=== PATIENT | female | born 1960 | race Hispanic/Latino ===

== ENCOUNTER 2017-07-27 16:42 | Emergency (ER) | payer SELFPAY ==
[2017-07-27] MEDS ORDERED: IPRATROPIUM/ALBUTEROL SULFATE 3 ML SOLUTION IH ONE (17:00)
[2017-07-27] MEDS ORDERED: METHYLPREDNISOLONE SOD SUCC 125MG/2ML VIAL ONE (17:16)
== END 2017-07-27 17:45 | disposition home or self-care (01) ==
LOC: EDH 16:42
DX: J45.909 Unspecified asthma, uncomplicated (principal)
CPT/HCPCS: 71045; 94640; 96372; 99283; J2930

== ENCOUNTER 2017-07-27 23:18 | Emergency (ER) | payer SELFPAY ==
[2017-07-27 23:47] LABS: BASOPHILS % (AUTO) 0.2 % (0.0-5.0); HEMATOCRIT 35.8 % (36-48); LYMPHOCYTES % (AUTO) 4.5 % (21.0-51.0); MEAN CORPUSCULAR HEMOGLOBIN 31.4 pg (27.0-33.0); MEAN CORPUSCULAR HGB CONC 33.4 g/dL (32.0-36.0); MONOCYTES % (AUTO) 0.6 % (3.0-13.0); NEUTROPHILS % (AUTO) 94.7 % (40.0-77.0); PLATELET COUNT (AUTO) 240 K/uL (130-400); RED BLOOD CELL COUNT(AUTO) 3.81 MIL/uL (4.00-5.50); RED CELL DISTRIBUTION WIDTH 13.9 % (11.0-15.5); WHITE BLOOD COUNT (AUTO) 8.6 K/uL (4.8-10.8)
[2017-07-27 23:50] LABS: ACETONE,BLOOD NEGATIVE (NEGATIVE)
[2017-07-27 23:57] LABS: APPEARANCE,URINE Clear (CLEAR); BILIRUBIN,URINE Negative (NEGATIVE); COLOR,URINE Yellow (YELLOW); GLUCOSE, URINE (UA) >=1000 mg/dL (NEGATIVE); KETONES,URINE Negative (NEGATIVE); LEUKOCYTE ESTERASE ,URINE Negative (NEGATIVE); NITRATE,URINE Negative (NEGATIVE); OCCULT BLOOD,URINE Negative (NEGATIVE); PH,URINE 5.5 (5.0-8.0); PROTEIN,URINE Negative (NEGATIVE); UROBILINOGEN,URINE 0.2 mg/dL (0.2-1.0)
[2017-07-27] MEDS ORDERED: SODIUM CHLORIDE 0.9% 1000ML 1,000 ML IV ONE (23:58)
[2017-07-28 00:10] LABS: BACTERIA,URINE None Seen /HPF (None Seen); RBC,URINE None Seen /HPF (0-1); SQUAMOUS EPITHELIAL CELL,UR Rare /LPF (0-2); WBC,URINE None Seen /HPF (0-1); YEAST,URINE BUDDING Rare /HPF (None Seen)
[2017-07-28 00:29] LABS: CARBON DIOXIDE 22 mmol/L (21-32); CHLORIDE 100 mmol/L (101-111); CREATININE 1.1 mg/dL (0.5-1.5); GLOMERULAR FILTR. RATE CALC 55 mL/min (>60); GLUCOSE,RANDOM 337 mg/dL (70-105); SODIUM SERUM 135 mmol/L (136-145); UREA NITROGEN, BLOOD 27 mg/dL (7-18)
[2017-07-28 00:34] LABS: ALANINE AMINOTRANSFERASE 25 U/L (12-78); ALBUMIN 3.8 g/dL (3.5-5.0); ASPARTATE AMINOTRANSFERASE 16 U/L (10-37); BILIRUBIN,TOTAL 0.2 mg/dL (0.2-1.0); TOTAL PROTEIN, SERUM 7.2 g/dL (6.0-8.3)
[2017-07-28] MEDS ORDERED: INSULIN HUMULIN R 100 UNIT/ML 3ML ONE (02:15)
== END 2017-07-28 02:26 | disposition home or self-care (01) ==
LOC: EDH 23:18
DX: E11.65 Type 2 diabetes mellitus with hyperglycemia (principal); E86.0 Dehydration; J45.909 Unspecified asthma, uncomplicated; I10 Essential (primary) hypertension
CPT/HCPCS: 36415; 80053; 81001; 82009; 82948; 85025; 96361; 96374; 99284; J1815; J7030

== ENCOUNTER 2017-08-05 20:27 | Emergency (ER) | payer SELFPAY ==
[2017-08-05 21:03] LABS: BASOPHILS % (AUTO) 0.3 % (0.0-5.0); EOSINOPHILS % (AUTO) 0.3 % (0.0-8.0); HEMATOCRIT 34.4 % (36-48); MEAN CORPUSCULAR HEMOGLOBIN 33.2 pg (27.0-33.0); MEAN CORPUSCULAR HGB CONC 35.6 g/dL (32.0-36.0); MEAN CORPUSCULAR VOLUME 93.2 fL (79-99); MONOCYTES % (AUTO) 2.7 % (3.0-13.0); NEUTROPHILS % (AUTO) 89.7 % (40.0-77.0); PLATELET COUNT (AUTO) 276 K/uL (130-400); RED CELL DISTRIBUTION WIDTH 13.4 % (11.0-15.5); WHITE BLOOD COUNT (AUTO) 9.9 K/uL (4.8-10.8)
[2017-08-05] MEDS ORDERED: IPRATROPIUM/ALBUTEROL SULFATE 3 ML SOLUTION IH ONE (21:18)
[2017-08-05 21:19] LABS: CREATININE 0.9 mg/dL (0.5-1.5); POTASSIUM 4.4 mmol/L (3.5-5.1)
[2017-08-05 21:24] LABS: ALBUMIN 3.9 g/dL (3.5-5.0); BILIRUBIN,TOTAL 0.2 mg/dL (0.2-1.0)
[2017-08-05 21:27] LABS: INR 0.95 (0.85-1.15); PARTIAL THROMBOPLASTIN TIME 27.9 SEC (26.3-35.5)
== END 2017-08-05 22:47 | disposition home or self-care (01) ==
LOC: EDH 20:27
DX: J45.901 Unspecified asthma with (acute) exacerbation (principal); I10 Essential (primary) hypertension
CPT/HCPCS: 36415; 71045; 80053; 82550; 83690; 84484; 85025; 85610; 85730; 94640

== ENCOUNTER 2017-11-20 16:53 | Emergency (ER) | payer OTHER ==
[2017-11-20 17:56] LABS: BASOPHILS % (AUTO) 0.4 % (0.0-5.0); EOSINOPHILS % (AUTO) 0.9 % (0.0-8.0); HEMATOCRIT 36.1 % (36-48); LYMPHOCYTES % (AUTO) 24.5 % (21.0-51.0); MEAN CORPUSCULAR HEMOGLOBIN 31.4 pg (27.0-33.0); MEAN CORPUSCULAR HGB CONC 33.8 g/dL (32.0-36.0); MEAN CORPUSCULAR VOLUME 92.9 fL (79-99); MONOCYTES % (AUTO) 6.4 % (3.0-13.0); NEUTROPHILS % (AUTO) 67.8 % (40.0-77.0); PLATELET COUNT (AUTO) 251 K/uL (130-400); RED BLOOD CELL COUNT(AUTO) 3.89 MIL/uL (4.00-5.50); RED CELL DISTRIBUTION WIDTH 13.6 % (11.0-15.5); WHITE BLOOD COUNT (AUTO) 13.2 K/uL (4.8-10.8)
[2017-11-20 18:05] LABS: CREATININE 0.7 mg/dL (0.5-1.5); POTASSIUM 3.8 mmol/L (3.5-5.1)
[2017-11-20] MEDS ORDERED: IPRATROPIUM/ALBUTEROL SULFATE 3 ML SOLUTION IH ONE (18:39)
== END 2017-11-20 18:54 | disposition home or self-care (01) ==
LOC: EDH 16:53
DX: R05 Cough (principal); J45.909 Unspecified asthma, uncomplicated; I10 Essential (primary) hypertension
CPT/HCPCS: 36415; 71046; 80048; 85025; 94640

== ENCOUNTER 2017-12-29 21:06 | Emergency (ER) | payer OTHER ==
[2017-12-29 21:38] LABS: HCG,QUAL RESULT NEGATIVE (NEGATIVE)
[2017-12-29 21:43] LABS: APPEARANCE,URINE Clear (CLEAR); BILIRUBIN,URINE Negative (NEGATIVE); COLOR,URINE Yellow (YELLOW); GLUCOSE, URINE (UA) Negative (NEGATIVE); KETONES,URINE Negative (NEGATIVE); LEUKOCYTE ESTERASE ,URINE Negative (NEGATIVE); NITRATE,URINE Negative (NEGATIVE); OCCULT BLOOD,URINE Negative (NEGATIVE); PROTEIN,URINE Negative (NEGATIVE); UROBILINOGEN,URINE 0.2 mg/dL (0.2-1.0)
[2017-12-29] MEDS ORDERED: CYCLOBENZAPRINE HCL 10 MG TABLET ONE (22:48)
[2017-12-29] MEDS ORDERED: TRAMADOL HCL 50 MG TABLET ONE (22:48)
== END 2017-12-29 23:07 | disposition home or self-care (01) ==
LOC: EDH 21:06
DX: S43.422A Sprain of left rotator cuff capsule, initial encounter (principal); M54.2 Cervicalgia; J45.909 Unspecified asthma, uncomplicated; I10 Essential (primary) hypertension; Z79.899 Other long term (current) drug therapy; X58.XXXA Exposure to other specified factors, initial encounter; Y93.89 Activity, other specified; Y92.098 Other place in other non-institutional residence as the place of occurrence of the external cause; Y99.8 Other external cause status
CPT/HCPCS: 72040; 81003; 81025

== ENCOUNTER 2018-04-26 14:38 | Emergency (ER) | payer SELFPAY ==
[2018-04-26] MEDS ORDERED: METHYLPREDNISOLONE SOD SUCC 125MG/2ML VIAL ONE (15:08)
[2018-04-26] MEDS ORDERED: IPRATROPIUM/ALBUTEROL SULFATE 3 ML SOLUTION IH ONE (15:11)
== END 2018-04-26 16:33 | disposition home or self-care (01) ==
LOC: EDH 14:38
DX: J45.21 Mild intermittent asthma with (acute) exacerbation (principal); I10 Essential (primary) hypertension
CPT/HCPCS: 94640; 96372; 99283; J2930

== ENCOUNTER 2018-07-02 09:29 | Emergency (ER) | payer SELFPAY ==
[2018-07-02] MEDS ORDERED: IPRATROPIUM/ALBUTEROL SULFATE 3 ML SOLUTION IH ONE (10:01)
[2018-07-02] MEDS ORDERED: ALBUTEROL SULFATE 0.083% 2.5 MG/3 ML INH IH ONE (10:01)
[2018-07-02] MEDS ORDERED: DEXAMETHASONE SOD PHOSPHATE 10MG/ML 1ML VIAL ONE (10:09)
[2018-07-02] MEDS ORDERED: SODIUM CHLORIDE 0.9% 1000ML 1,000 ML IV ONE (10:09)
[2018-07-02] MEDS ORDERED: KETOROLAC TROMETHAMINE 30MG/ML ONE (10:09)
[2018-07-02 10:26] LABS: BASOPHILS % (AUTO) 0.7 % (0.0-5.0); EOSINOPHILS % (AUTO) 3.8 % (0.0-8.0); HEMATOCRIT 35.1 % (36-48); LYMPHOCYTES % (AUTO) 12.3 % (21.0-51.0); MEAN CORPUSCULAR HEMOGLOBIN 31.9 pg (27.0-33.0); MEAN CORPUSCULAR HGB CONC 33.9 g/dL (32.0-36.0); MEAN CORPUSCULAR VOLUME 94.2 fL (79-99); MONOCYTES % (AUTO) 10.9 % (3.0-13.0); NEUTROPHILS % (AUTO) 72.3 % (40.0-77.0); NUCLEATED RED BLOOD CELLS 0.1 % (0.0-0.19); PLATELET COUNT (AUTO) 244 K/uL (130-400); RED BLOOD CELL COUNT(AUTO) 3.73 MIL/uL (4.00-5.50); RED CELL DISTRIBUTION WIDTH 14.2 % (11.0-15.5); WHITE BLOOD COUNT (AUTO) 6.3 K/uL (4.8-10.8)
[2018-07-02 10:43] LABS: CREATININE 0.7 mg/dL (0.5-1.5); POTASSIUM 4.1 mmol/L (3.5-5.1)
[2018-07-02 10:47] LABS: ALBUMIN 3.6 g/dL (3.5-5.0); BILIRUBIN,TOTAL 0.4 mg/dL (0.2-1.0); TOTAL PROTEIN, SERUM 7.1 g/dL (6.0-8.3)
[2018-07-02 11:05] LABS: B-TYPE NATRIURETIC PEPTIDE 52 pg/mL (0-100)
== END 2018-07-02 14:08 | disposition home or self-care (01) ==
LOC: EDH 09:29
DX: J45.901 Unspecified asthma with (acute) exacerbation (principal); I10 Essential (primary) hypertension
CPT/HCPCS: 36415; 71045; 80053; 83880; 84484; 85025; 87804 ×2; 93005; 94640 ×2; 96374; 96375; 99284; J1100; J1885; J7030

== ENCOUNTER 2018-10-02 16:39 | Emergency (ER) | payer SELFPAY | END 2018-10-02 17:07 | disposition home or self-care (01) | LOC: EDH 16:39 | DX: K02.9 Dental caries, unspecified (principal); J45.909 Unspecified asthma, uncomplicated; I10 Essential (primary) hypertension ==

== ENCOUNTER 2018-10-23 16:14 | Emergency (ER) | payer OTHER ==
[2018-10-23] MEDS ORDERED: DEXAMETHASONE SOD PHOSPHATE 10MG/ML 1ML VIAL ONE (16:32)
[2018-10-23] MEDS ORDERED: IPRATROPIUM/ALBUTEROL SULFATE 3 ML SOLUTION IH ONE (16:34)
== END 2018-10-23 17:40 | disposition home or self-care (01) ==
LOC: EDH 16:14
DX: J45.21 Mild intermittent asthma with (acute) exacerbation (principal); I10 Essential (primary) hypertension; Z98.890 Other specified postprocedural states
CPT/HCPCS: 71046; 94640; 96372; 99284; J1100

== ENCOUNTER 2019-05-15 00:48 | Emergency (ER) | payer OTHER ==
[2019-05-15] MEDS ORDERED: IPRATROPIUM/ALBUTEROL SULFATE 3 ML SOLUTION IH ONE (01:53)
[2019-05-15 01:58] LABS: BASOPHILS % (AUTO) 2.1 % (0.0-5.0); EOSINOPHILS % (AUTO) 7.3 % (0.0-8.0); HEMATOCRIT 36.4 % (36-48); LYMPHOCYTES % (AUTO) 31.4 % (21.0-51.0); MEAN CORPUSCULAR HEMOGLOBIN 30.1 pg (27.0-33.0); MEAN CORPUSCULAR HGB CONC 33.2 g/dL (32.0-36.0); MEAN CORPUSCULAR VOLUME 90.8 fL (79-99); MONOCYTES % (AUTO) 7.4 % (3.0-13.0); NEUTROPHILS % (AUTO) 51.8 % (40.0-77.0); PLATELET COUNT (AUTO) 230 K/uL (130-400); RED BLOOD CELL COUNT(AUTO) 4.01 MIL/uL (4.00-5.50); RED CELL DISTRIBUTION WIDTH 15.1 % (11.0-15.5); WHITE BLOOD COUNT (AUTO) 7.8 K/uL (4.8-10.8)
[2019-05-15 02:04] LABS: CREATININE 0.9 mg/dL (0.5-1.5)
[2019-05-15 02:08] LABS: ALBUMIN 3.7 g/dL (3.5-5.0); BILIRUBIN,DIRECT 0.1 mg/dL (0.0-0.3); BILIRUBIN,TOTAL 0.3 mg/dL (0.2-1.0); TOTAL PROTEIN, SERUM 6.9 g/dL (6.0-8.3)
[2019-05-15 02:16] LABS: B-TYPE NATRIURETIC PEPTIDE 11 pg/mL (0-100)
== END 2019-05-15 04:48 | disposition home or self-care (01) ==
LOC: EDH 00:48
DX: J45.901 Unspecified asthma with (acute) exacerbation (principal); F41.9 Anxiety disorder, unspecified
CPT/HCPCS: 36415; 71045; 80048; 80076; 82550; 83880; 84484; 85025; 93005; 94640

== ENCOUNTER 2019-07-01 12:16 | Emergency (ER) | payer OTHER ==
[2019-07-01 12:34] LABS: BASOPHILS % (AUTO) 0.3 % (0.0-5.0); EOSINOPHILS % (AUTO) 3.7 % (0.0-8.0); HEMATOCRIT 40.6 % (36-48); LYMPHOCYTES % (AUTO) 21.5 % (21.0-51.0); MEAN CORPUSCULAR HEMOGLOBIN 29.8 pg (27.0-33.0); MEAN CORPUSCULAR HGB CONC 32.8 g/dL (32.0-36.0); MONOCYTES % (AUTO) 6.7 % (3.0-13.0); PLATELET COUNT (AUTO) 322 K/uL (130-400); RED BLOOD CELL COUNT(AUTO) 4.46 MIL/uL (4.00-5.50); RED CELL DISTRIBUTION WIDTH 14.2 % (11.0-15.5); WHITE BLOOD COUNT (AUTO) 11.2 K/uL (4.8-10.8)
[2019-07-01] MEDS ORDERED: IPRATROPIUM/ALBUTEROL SULFATE 3 ML SOLUTION IH ONE (12:41)
[2019-07-01 12:43] LABS: CREATININE 0.9 mg/dL (0.5-1.5); PARTIAL THROMBOPLASTIN TIME 30.7 SEC (26.3-35.5); POTASSIUM 3.8 mmol/L (3.5-5.1); PROTHROMBIN TIME 10.5 SEC (9.6-11.6)
[2019-07-01 12:48] LABS: ALBUMIN 3.8 g/dL (3.5-5.0); BILIRUBIN,TOTAL 0.3 mg/dL (0.2-1.0); TOTAL PROTEIN, SERUM 7.5 g/dL (6.0-8.3)
[2019-07-01] MEDS ORDERED: PREDNISONE 20 MG TABLET ONE (13:14)
[2019-07-01] MEDS ORDERED: PREDNISONE 20 MG TABLET PO SCH (13:15)
== END 2019-07-01 15:19 | disposition home or self-care (01) ==
LOC: EDH 12:16
DX: J45.909 Unspecified asthma, uncomplicated (principal); I10 Essential (primary) hypertension
CPT/HCPCS: 36415; 71045; 80053; 82550; 84484; 85025; 85610; 85730; 93005; 94640

== ENCOUNTER 2019-07-21 15:54 | Emergency (ER) | payer SELFPAY ==
[2019-07-21] MEDS ORDERED: METHYLPREDNISOLONE SOD SUCC 125MG/2ML VIAL ONE (16:21)
== END 2019-07-21 17:02 | disposition home or self-care (01) ==
LOC: EDH 15:54
DX: J45.21 Mild intermittent asthma with (acute) exacerbation (principal); I10 Essential (primary) hypertension
CPT/HCPCS: 96372; 99283; J2930

== ENCOUNTER 2019-10-13 17:22 | Emergency (ER) | payer OTHER ==
[2019-10-13] MEDS ORDERED: METHYLPREDNISOLONE SOD SUCC 125MG/2ML VIAL ONE (18:10)
[2019-10-13] MEDS ORDERED: ALBUTEROL INHALER 90MCG/INH IH ONE (18:10)
[2019-10-13] MEDS ORDERED: CEFTRIAXONE SODIUM 1 GM ONE (18:11)
[2019-10-13 18:29] LABS: BASOPHILS % (AUTO) 0.1 % (0.0-5.0); HEMATOCRIT 39.1 % (36-48); LYMPHOCYTES % (AUTO) 6.5 % (21.0-51.0); MEAN CORPUSCULAR HEMOGLOBIN 30.6 pg (27.0-33.0); MEAN CORPUSCULAR HGB CONC 32.7 g/dL (32.0-36.0); MEAN CORPUSCULAR VOLUME 93.5 fL (79-99); MONOCYTES % (AUTO) 2.1 % (3.0-13.0); NEUTROPHILS % (AUTO) 90.2 % (40.0-77.0); PLATELET COUNT (AUTO) 278 K/uL (130-400); RED BLOOD CELL COUNT(AUTO) 4.18 MIL/uL (4.00-5.50); RED CELL DISTRIBUTION WIDTH 15.2 % (11.0-15.5); WHITE BLOOD COUNT (AUTO) 8.6 K/uL (4.8-10.8)
[2019-10-13 18:39] LABS: CREATININE 1.1 mg/dL (0.5-1.5); POTASSIUM 4.3 mmol/L (3.5-5.1)
[2019-10-13 18:45] LABS: BILIRUBIN,DIRECT 0.1 mg/dL (0.0-0.3); BILIRUBIN,TOTAL 0.3 mg/dL (0.2-1.0); TOTAL PROTEIN, SERUM 7.5 g/dL (6.0-8.3)
== END 2019-10-13 20:57 | disposition home or self-care (01) ==
LOC: EDH 17:22
DX: J20.9 Acute bronchitis, unspecified (principal); J45.901 Unspecified asthma with (acute) exacerbation; I10 Essential (primary) hypertension
CPT/HCPCS: 36415; 71045; 80048; 80076; 82550; 82948; 84484; 85025; 87804 ×2; 93005; 96374; 96375; 99285; J0696; J2930

== ENCOUNTER 2021-02-05 16:21 | Emergency (ER) | payer SELFPAY ==
[~2021-02-05] VITALS: Ht 157.5 cm; Wt 72.6 kg
[2021-02-05 16:23] VITALS: BP 152/84
[2021-02-05] MEDS ORDERED: IPRATROPIUM/ALBUTEROL SULFATE 3 ML SOLUTION IH ONE ×2 (17:02→18:00)
[2021-02-05] MEDS ORDERED: SOLU-MEDROL 125MG VIAL IVP ONE (18:00)
[2021-02-05] MEDS ORDERED: ALBUTEROL 0.083% 2.5 MG/3 ML INH IH ONE ×2 (18:43→19:00)
[2021-02-05] MEDS ORDERED: GUAI5LIQ10 PO (18:49)
[2021-02-05] MEDS ORDERED: PRED20TA3 PO (18:49)
[2021-02-05] MEDS ORDERED: AZIT500T2 PO (18:49)
[2021-02-05] MEDS ORDERED: GUAIFENESIN-DM 200/20 MG 10 ML PO ONE (19:00)
[2021-02-05 19:01] VITALS: BP 141/75
[2021-02-06] MEDS ORDERED: AZITHROMYCIN 500 MG PO SCH (09:00)
[2021-02-06] MEDS ORDERED: PREDNISONE 20 MG TABLET PO SCH (09:00)
== END 2021-02-05 19:08 | disposition home or self-care (01) ==
LOC: EDH 16:21
DX: J45.901 Unspecified asthma with (acute) exacerbation (principal); J20.9 Acute bronchitis, unspecified; Z20.822 Contact with and (suspected) exposure to COVID-19; E11.9 Type 2 diabetes mellitus without complications; E78.00 Pure hypercholesterolemia, unspecified; I10 Essential (primary) hypertension; Z79.899 Other long term (current) drug therapy; Z79.52 Long term (current) use of systemic steroids
CPT/HCPCS: 71045; 87635; 94640 ×2; 96374; 99284; C9803; J2930

== ENCOUNTER 2021-04-06 16:42 | Emergency (ER) | payer OTHER, SELFPAY ==
[~2021-04-06] VITALS: Ht 157.5 cm; Wt 71.7 kg
[~2021-04-06 16:42] MED LIST: AZIT500T2 PO; GUAI5LIQ10 PO; PRED20TA3 PO
[2021-04-06] MEDS ORDERED: KETOROLAC 30MG VIAL (30MG/ML) IVP ONE (17:30)
[2021-04-06 17:31] LABS: APPEARANCE,URINE Clear (CLEAR); BILIRUBIN,URINE Negative (NEGATIVE); COLOR,URINE Dark Yellow (YELLOW); GLUCOSE, URINE (UA) TRACE mg/dL (NEGATIVE); KETONES,URINE Trace mg/dL (NEGATIVE); LEUKOCYTE ESTERASE ,URINE Trace (NEGATIVE); NITRATE,URINE Negative (NEGATIVE); OCCULT BLOOD,URINE Negative (NEGATIVE); PH,URINE 6.5 (5.0-8.0); PROTEIN,URINE Trace mg/dL (NEGATIVE)
[2021-04-06 17:38] LABS: BACTERIA,URINE Few /HPF (None Seen); MUCUS,URINE Moderate LPF (None Seen); RBC,URINE 0-1 /HPF (0-1); SQUAMOUS EPITHELIAL CELL,UR Few /HPF (0-2)
[2021-04-06 17:39] LABS: HYALINE CASTS, URINE 0-1 /LPF (0-1 /LPF)
[2021-04-06 17:41] LABS: BASOPHILS % (AUTO) 0.5 % (0.0-5.0); EOSINOPHILS % (AUTO) 1.2 % (0.0-8.0); HEMATOCRIT 39.2 % (36-48); LYMPHOCYTES % (AUTO) 19.4 % (21.0-51.0); MEAN CORPUSCULAR HEMOGLOBIN 32.7 pg (27.0-33.0); MEAN CORPUSCULAR HGB CONC 33.2 g/dL (32.0-36.0); MEAN CORPUSCULAR VOLUME 98.7 fL (79-99); MONOCYTES % (AUTO) 6.3 % (3.0-13.0); PLATELET COUNT (AUTO) 217 K/uL (130-400); RED BLOOD CELL COUNT(AUTO) 3.97 MIL/uL (4.00-5.50); RED CELL DISTRIBUTION WIDTH 14.5 % (11.0-15.5); WHITE BLOOD COUNT (AUTO) 12.9 K/uL (4.8-10.8)
[2021-04-06 17:52] LABS: POTASSIUM 3.7 mmol/L (3.5-5.1)
[2021-04-06 18:03] LABS: ALBUMIN 3.7 g/dL (3.5-5.0); BILIRUBIN,TOTAL 0.2 mg/dL (0.2-1.0)
[2021-04-06 19:38] VITALS: BP 147/74
[2021-04-06] MEDS ORDERED: IBUP-2088 PO (20:35)
== END 2021-04-06 20:49 | disposition home or self-care (01) ==
LOC: EDH 16:42
DX: R07.89 Other chest pain (principal); J45.909 Unspecified asthma, uncomplicated; E78.00 Pure hypercholesterolemia, unspecified; I10 Essential (primary) hypertension; Z79.899 Other long term (current) drug therapy
CPT/HCPCS: 36415; 71045; 71250; 80053; 81001; 82150; 83690; 84484; 85025; 93005; 96374; 99285; J1885

== ENCOUNTER 2021-04-23 17:14 | Emergency (ER) | payer OTHER, SELFPAY ==
[~2021-04-23] VITALS: Ht 152.4 cm; Wt 82.6 kg
[~2021-04-23 17:14] MED LIST changes: +IBUP-2088 PO
[2021-04-23] MEDS ORDERED: ONDANSETRON 4MG INJ IVP ONE (17:30)
[2021-04-23] MEDS ORDERED: FAMOTIDINE 20MG VIAL IV ONE (17:30)
[2021-04-23] MEDS ORDERED: MORPHINE 4 MG SYG IVP ONE (17:30)
[2021-04-23 18:02] LABS: BASOPHILS % (AUTO) 0.4 % (0.0-5.0); EOSINOPHILS % (AUTO) 1.6 % (0.0-8.0); HEMATOCRIT 37.4 % (36-48); MEAN CORPUSCULAR HEMOGLOBIN 32.6 pg (27.0-33.0); MEAN CORPUSCULAR HGB CONC 33.7 g/dL (32.0-36.0); MEAN CORPUSCULAR VOLUME 96.9 fL (79-99); MONOCYTES % (AUTO) 6.2 % (3.0-13.0); NEUTROPHILS % (AUTO) 67.5 % (40.0-77.0); PLATELET COUNT (AUTO) 283 K/uL (130-400); RED BLOOD CELL COUNT(AUTO) 3.86 MIL/uL (4.00-5.50); RED CELL DISTRIBUTION WIDTH 13.8 % (11.0-15.5); WHITE BLOOD COUNT (AUTO) 12.1 K/uL (4.8-10.8)
[2021-04-23 18:10] LABS: CREATININE 1.1 mg/dL (0.5-1.5); POTASSIUM 3.6 mmol/L (3.5-5.1)
[2021-04-23 18:14] LABS: ALBUMIN 3.8 g/dL (3.5-5.0); BILIRUBIN,TOTAL 0.3 mg/dL (0.2-1.0)
[2021-04-23 18:48] LABS: HEMOGLOBIN A1C 8.4 % (4.0-6.0)
[2021-04-23] MEDS ORDERED: HYOS0.124 SL (19:35)
[2021-04-23 19:56] VITALS: BP 124/74
== END 2021-04-23 19:58 | disposition home or self-care (01) ==
LOC: EDH 17:14
DX: K75.81 Nonalcoholic steatohepatitis (NASH) (principal); Z20.822 Contact with and (suspected) exposure to COVID-19; E11.9 Type 2 diabetes mellitus without complications
CPT/HCPCS: 36415; 76705; 80053; 82150; 83036; 83690; 84484; 85025; 87635; 96374; 96375; 99284; C9803; J2270; J2405; J3490

== ENCOUNTER 2022-04-23 16:10 | Emergency (ER) | payer OTHER ==
[~2022-04-23] VITALS: Ht 160 cm; Wt 63.5 kg
[~2022-04-23 16:10] MED LIST changes: -GUAI5LIQ10 PO; +GUAI5LIQ13 PO; +HYOS0.124 SL
[2022-04-23 16:24] VITALS: BP 155/78
[2022-04-23] MEDS ORDERED: DEXAMETHASONE SOD PHOSPHATE 10MG/ML 1ML VIAL ONE (16:42)
[2022-04-23] MEDS: DEXAMETHASONE SOD PHOSPHATE 4 MG/ML 1ML VIAL IM ONE ×2 (16:45→17:16)
[2022-04-23] MEDS ORDERED: IPRATROPIUM/ALBUTEROL SULFATE 3 ML SOLUTION IH ONE ×2 (16:46→17:00)
[2022-04-23] MEDS ORDERED: PRED20TA3 PO (17:17)
[2022-04-23] MEDS ORDERED: AZIT1PAC7 PO (17:17)
== END 2022-04-23 17:24 | disposition home or self-care (01) ==
LOC: EDH 16:10
DX: J45.901 Unspecified asthma with (acute) exacerbation (principal); J20.9 Acute bronchitis, unspecified; E11.9 Type 2 diabetes mellitus without complications; E78.00 Pure hypercholesterolemia, unspecified; I10 Essential (primary) hypertension; Z79.899 Other long term (current) drug therapy; Z60.2 Problems related to living alone
CPT/HCPCS: 99283; 71045; 96372; J1100

== ENCOUNTER 2022-05-28 20:59 | Emergency (ER) | payer OTHER ==
[~2022-05-28] VITALS: Ht 160 cm; Wt 76.2 kg
[~2022-05-28 20:59] MED LIST changes: +AZIT1PAC7 PO
[2022-05-28 21:00] VITALS: BP 140/81
[2022-05-28] MEDS ORDERED: SOLU-MEDROL 125MG VIAL IVP ONE (21:30)
[2022-05-28] MEDS ORDERED: IPRATROPIUM/ALBUTEROL SULFATE 3 ML SOLUTION IH ONE ×3 (21:30)
[2022-05-28] MEDS ORDERED: ALBU2.5V2 IH (22:23)
[2022-05-28] MEDS ORDERED: ALBU90AE2 IH (22:23)
[2022-05-28] MEDS ORDERED: AZIT500T2 PO (22:23)
[2022-05-28] MEDS ORDERED: PRED20TA3 PO (22:23)
== END 2022-05-28 22:31 | disposition home or self-care (01) ==
LOC: EDH 20:59
DX: J45.901 Unspecified asthma with (acute) exacerbation (principal); I10 Essential (primary) hypertension; Z79.899 Other long term (current) drug therapy; Z60.2 Problems related to living alone
CPT/HCPCS: 71045; 87804; 94640; 96374

== ENCOUNTER 2022-10-24 12:28 | Emergency (ER) | payer OTHER ==
[~2022-10-24] VITALS: Ht 162.6 cm; Wt 74.8 kg
[~2022-10-24 12:28] MED LIST changes: +ALBU2.5V2 IH; +ALBU90AE2 IH
[2022-10-24 13:25] LABS: BASOPHILS % (AUTO) 0.7 % (0.0-5.0); EOSINOPHILS % (AUTO) 1.2 % (0.0-8.0); HEMATOCRIT 37.6 % (36-48); LYMPHOCYTES % (AUTO) 27.2 % (21.0-51.0); MEAN CORPUSCULAR HEMOGLOBIN 31.5 pg (27.0-33.0); MEAN CORPUSCULAR HGB CONC 32.4 g/dL (32.0-36.0); MEAN CORPUSCULAR VOLUME 97.2 fL (79-99); MONOCYTES % (AUTO) 6.4 % (3.0-13.0); NEUTROPHILS % (AUTO) 60.6 % (40.0-77.0); NUCLEATED RED BLOOD CELLS 0.4 % (0.0-0.19); PLATELET COUNT (AUTO) 265 K/uL (130-400); RED BLOOD CELL COUNT(AUTO) 3.87 MIL/uL (4.00-5.50); RED CELL DISTRIBUTION WIDTH 15.9 % (11.0-15.5); WHITE BLOOD COUNT (AUTO) 12.1 K/uL (4.8-10.8)
[2022-10-24 13:36] LABS: CREATININE 0.8 mg/dL (0.5-1.5); POTASSIUM 3.6 mmol/L (3.5-5.1)
[2022-10-24 13:37] LABS: APPEARANCE,URINE CLEAR (CLEAR); BILIRUBIN,URINE NEGATIVE (NEGATIVE); COLOR,URINE COLORLESS (YELLOW); GLUCOSE, URINE (UA) NEGATIVE (NEGATIVE); KETONES,URINE NEGATIVE (NEGATIVE); LEUKOCYTE ESTERASE ,URINE NEGATIVE Leu/uL (NEGATIVE); NITRATE,URINE NEGATIVE (NEGATIVE); OCCULT BLOOD,URINE NEGATIVE (NEGATIVE); PH,URINE 6.5 (5.0-8.0); PROTEIN,URINE NEGATIVE (NEGATIVE); UROBILINOGEN,URINE 0.2 mg/dL (0.2-1.0)
[2022-10-24 13:53] LABS: ALBUMIN 3.5 g/dL (3.5-5.0); TOTAL PROTEIN, SERUM 6.7 g/dL (6.0-8.3)
[2022-10-24] MEDS ORDERED: PROCHLORPERAZINE 10MG/2ML INJ IV ONE (15:00)
[2022-10-24] MEDS ORDERED: KETOROLAC 15MG/ML VIAL (15MG/ML) IV ONE (15:00)
[2022-10-24] MEDS ORDERED: DiphenhydrAMINE HCL 50 MG/ML VIAL IV ONE (15:00)
[2022-10-24] MEDS ORDERED: FIORIT PO (16:56)
[2022-10-24 17:39] VITALS: BP 135/78
== END 2022-10-24 17:45 | disposition home or self-care (01) ==
LOC: EDH 12:28
DX: G43.909 Migraine, unspecified, not intractable, without status migrainosus (principal); I10 Essential (primary) hypertension; E11.9 Type 2 diabetes mellitus without complications; J45.909 Unspecified asthma, uncomplicated; Z20.822 Contact with and (suspected) exposure to COVID-19
CPT/HCPCS: 99285; 96374; 71045; 96375; 87635; 84484 ×2; 80053; 85025; 81003; 36415; 93005; C9803; J1200; J0780; J1885

== ENCOUNTER 2023-05-16 11:30 | Emergency (ER) | payer OTHER ==
[~2023-05-16] VITALS: Ht 160 cm; Wt 76.2 kg
[~2023-05-16 11:30] MED LIST changes: +FIORIT PO
[2023-05-16 12:06] LABS: BASOPHILS # (AUTO) 0.03 K/uL (0.00-0.20); BASOPHILS % (AUTO) 0.2 % (0.0-5.0); EOSINOPHILS # (AUTO) 0.25 K/uL (0.00-0.70); EOSINOPHILS % (AUTO) 1.4 % (0.0-8.0); HEMATOCRIT 36.6 % (36-48); IMMATURE GRANULOCYTE ABSOLUTE 0.18 K/uL (0-1); LYMPHOCYTES # (AUTO) 3.4 K/uL (1.0-4.8); LYMPHOCYTES % (AUTO) 19.2 % (21.0-51.0); MEAN CORPUSCULAR HEMOGLOBIN 30.4 pg (27.0-33.0); MEAN CORPUSCULAR HGB CONC 32.5 g/dL (32.0-36.0); MEAN CORPUSCULAR VOLUME 93.6 fL (79-99); MONOCYTES # (AUTO) 1.3 K/uL (0.1-1.0); NEUTROPHILS # (AUTO) 12.7 K/uL (1.8-7.7); NEUTROPHILS % (AUTO) 71.2 % (40.0-77.0); PLATELET COUNT (AUTO) 247 K/uL (130-400); RED BLOOD CELL COUNT(AUTO) 3.91 MIL/uL (4.00-5.50); RED CELL DISTRIBUTION WIDTH 14.7 % (11.0-15.5); WHITE BLOOD COUNT (AUTO) 17.8 K/uL (4.8-10.8)
[2023-05-16 12:17] LABS: CREATININE 0.9 mg/dL (0.5-1.5); POTASSIUM 3.3 mmol/L (3.5-5.1)
[2023-05-16 12:22] LABS: ALBUMIN 3.3 g/dL (3.5-5.0); BILIRUBIN,TOTAL 0.7 mg/dL (0.2-1.0); TOTAL PROTEIN, SERUM 6.6 g/dL (6.0-8.3)
[2023-05-16] MEDS ORDERED: CEFTRIAXONE 1G VIAL IM ONE (14:00)
[2023-05-16] MEDS ORDERED: ALBUTEROL 0.083% 2.5 MG/3 ML INH IH ONE (14:00)
[2023-05-16] MEDS ORDERED: LEVO750T68 PO (14:11)
[2023-05-16] MEDS ORDERED: ALBU0.63 IH (14:22)
[2023-05-16 14:40] VITALS: PULSE 82; RESP 18
[2023-05-16 15:00] VITALS: BP 125/61; PULSE 74; RESP 18; O2SAT 98
== END 2023-05-16 15:07 | disposition home or self-care (01) ==
LOC: EDH 11:30
DX: J18.9 Pneumonia, unspecified organism (principal); I10 Essential (primary) hypertension; E11.9 Type 2 diabetes mellitus without complications; Z20.822 Contact with and (suspected) exposure to COVID-19; Z79.899 Other long term (current) drug therapy; Z98.890 Other specified postprocedural states
CPT/HCPCS: 99284; 71045; 80053; 85025; 36415; 96372; 94640; J0696

== ENCOUNTER 2023-11-13 09:55 | Emergency (ER) | payer OTHER ==
[~2023-11-13] VITALS: Ht 160 cm; Wt 78.9 kg
[~2023-11-13 09:55] MED LIST changes: +ALBU0.63 IH; +LEVO750T68 PO
[2023-11-13 09:56] VITALS: BP 113/60; PULSE 92; RESP 20
[2023-11-13] MEDS: KETOROLAC 30MG VIAL (30MG/ML) IM ONE (10:37)
[2023-11-13] MEDS ORDERED: KETO10TA2 PO (11:06)
== END 2023-11-13 11:33 | disposition home or self-care (01) ==
LOC: EDH 09:55
DX: S86.912A Strain of unspecified muscle(s) and tendon(s) at lower leg level, left leg, initial encounter (principal); X58.XXXA Exposure to other specified factors, initial encounter; Y93.89 Activity, other specified; Y92.89 Other specified places as the place of occurrence of the external cause; Y99.8 Other external cause status
CPT/HCPCS: 99283; 29505; 73562; 96372; J1885

== ENCOUNTER 2023-11-17 21:34 | Inpatient (IN) | payer OTHER ==
[~2023-11-17] VITALS: Ht 160 cm; Wt 75.5 kg
[~2023-11-17 21:34] MED LIST changes: +KETO10TA2 PO
[2023-11-17 22:53] VITALS: PULSE 107; RESP 22
[2023-11-17] MEDS: IPRATROPIUM/ALBUTEROL SULFATE 3 ML SOLUTION IH ONE (22:54)
[2023-11-17 23:25] LABS: BASOPHILS # (AUTO) 0.07 K/uL (0.00-0.20); BASOPHILS % (AUTO) 0.3 % (0.0-5.0); EOSINOPHILS # (AUTO) 0.47 K/uL (0.00-0.70); EOSINOPHILS % (AUTO) 2.2 % (0.0-8.0); HEMATOCRIT 34.7 % (36-48); IMMATURE GRANULOCYTE ABSOLUTE 0.53 K/uL (0-1); LYMPHOCYTES # (AUTO) 2.8 K/uL (1.0-4.8); LYMPHOCYTES % (AUTO) 13.4 % (21.0-51.0); MEAN CORPUSCULAR HEMOGLOBIN 30.6 pg (27.0-33.0); MEAN CORPUSCULAR HGB CONC 31.4 g/dL (32.0-36.0); MEAN CORPUSCULAR VOLUME 97.5 fL (79-99); MONOCYTES % (AUTO) 9.2 % (3.0-13.0); NEUTROPHILS # (AUTO) 15.4 K/uL (1.8-7.7); NEUTROPHILS % (AUTO) 72.4 % (40.0-77.0); NUCLEATED RED BLOOD CELLS 0.2 % (0.0-0.19); PLATELET COUNT (AUTO) 255 K/uL (130-400); RED BLOOD CELL COUNT(AUTO) 3.56 MIL/uL (4.00-5.50); RED CELL DISTRIBUTION WIDTH 14.5 % (11.0-15.5); WHITE BLOOD COUNT (AUTO) 21.3 K/uL (4.8-10.8)
[2023-11-17] MEDS: SOLU-MEDROL 125MG VIAL IVP ONE (23:30)
[2023-11-17] MEDS: 0.9%NACL 1000ML 1,503 ML IV ONE (23:30)
[2023-11-17 23:32] LABS: APPEARANCE,URINE TURBID (CLEAR); BILIRUBIN,URINE NEGATIVE (NEGATIVE); COLOR,URINE YELLOW (YELLOW); GLUCOSE, URINE (UA) NEGATIVE (NEGATIVE); KETONES,URINE NEGATIVE (NEGATIVE); LEUKOCYTE ESTERASE ,URINE 500 Leu/uL (NEGATIVE); NITRATE,URINE NEGATIVE (NEGATIVE); OCCULT BLOOD,URINE MODERATE (NEGATIVE); PH,URINE 5.5 (5.0-8.0); PROTEIN,URINE 70 mg/dL (NEGATIVE); UROBILINOGEN,URINE 0.2 mg/dL (0.2-1.0)
[2023-11-17 23:34] LABS: INR <= 0.93 (0.85-1.15); PROTHROMBIN TIME 10.5 SEC (9.6-11.6)
[2023-11-17 23:35] LABS: PARTIAL THROMBOPLASTIN TIME 31.4 SEC (26.3-35.5)
[2023-11-17 23:37] LABS: ALBUMIN 2.8 g/dL (3.5-5.0); BILIRUBIN,TOTAL 0.6 mg/dL (0.2-1.0); CREATININE 2.7 mg/dL (0.5-1.0); TOTAL PROTEIN, SERUM 6.6 g/dL (6.0-8.3)
[2023-11-17 23:37] LABS: ADD UA MICROSCOPIC YES
[2023-11-17 23:41] LABS: BACTERIA,URINE MOD /HPF (None Seen); MUCUS,URINE RARE LPF (None Seen); SQUAMOUS EPITHELIAL CELL,UR RARE /HPF (0-2); WBC CLUMP RARE /HPF (0-1); WBC,URINE TNTC /HPF (0-1)
[2023-11-17 23:44] LABS: POTASSIUM 6.1 mmol/L (3.5-5.1)
[2023-11-17 23:50] LABS: B-TYPE NATRIURETIC PEPTIDE 889 pg/mL (0-100)
[2023-11-18] VITALS (16 sets, daily range): BP systolic 100–140; BP diastolic 53–81; PULSE 73–90; RESP 13–23; O2SAT 99
[2023-11-18] MEDS ORDERED: FUROSEMIDE 40 MG UD CUP PO ONE (00:30)
[2023-11-18] MEDS ORDERED: KAYEXALATE 15GM/60ML RC SCH (00:30)
[2023-11-18] MEDS: CALCIUM GLUC 1GM 1 GM in 0.9%NACL 100ML 100 ML IV ONE ×2 (00:44→09:03)
[2023-11-18] MEDS: DEXTROSE 50%-WATER 50 ML DISP.SYRIN IV ONE (00:44)
[2023-11-18] MEDS: DEXTROSE 50%-WATER 25 GM/50 ML VIAL IV ONE (00:45)
[2023-11-18] MEDS: CALCIUM GLUC 1GM/10ML VIAL ONE (00:47)
[2023-11-18] MEDS: FUROSEMIDE 40MG VIAL IV ONE (00:47)
[2023-11-18] MEDS: INSULIN HUMULIN R 100 UNIT/ML 3ML IV ONE (00:48)
[2023-11-18 01:13] LABS: INFLUENZA TYPE A NEGATIVE FOR TYPE A (NEG)
[2023-11-18 01:14] LABS: INFLUENZA TYPE B NEGATIVE FOR TYPE B (NEG); SARS-CoV-2, RNA, NAAT NEGATIVE SARS CoV-2 (NEGATIVE)
[2023-11-18] MEDS: KAYEXALATE 15GM/60ML PO SCH (02:47)
[2023-11-18] MEDS: NALOXONE HCL 1 MG/ML 2ML SYG IV STA (02:48)
[2023-11-18] MEDS: NALOXONE HCL 0.4 MG/1 ML ML ONE (02:50)
[2023-11-18] MEDS: NALOXONE HCL 0.4 MG/1 ML ML IVP SCH (02:50)
[2023-11-18] MEDS ORDERED: DEXTROSE 50%-WATER 50 ML DISP.SYRIN IV PRN ×2 (05:00)
[2023-11-18] MEDS ORDERED: GLUCAGON 1MG KIT 1 MG ML IM PRN ×2 (05:00)
[2023-11-18 05:15] LABS: BASOPHILS # (AUTO) 0.05 K/uL (0.00-0.20); BASOPHILS % (AUTO) 0.3 % (0.0-5.0); EOSINOPHILS # (AUTO) 0.01 K/uL (0.00-0.70); EOSINOPHILS % (AUTO) 0.1 % (0.0-8.0); HEMATOCRIT 34.4 % (36-48); IMMATURE GRANULOCYTE ABSOLUTE 0.29 K/uL (0-1); LYMPHOCYTES # (AUTO) 0.5 K/uL (1.0-4.8); LYMPHOCYTES % (AUTO) 2.8 % (21.0-51.0); MEAN CORPUSCULAR HEMOGLOBIN 30.8 pg (27.0-33.0); MEAN CORPUSCULAR HGB CONC 31.7 g/dL (32.0-36.0); MEAN CORPUSCULAR VOLUME 97.2 fL (79-99); MONOCYTES # (AUTO) 0.2 K/uL (0.1-1.0); MONOCYTES % (AUTO) 0.9 % (3.0-13.0); NEUTROPHILS # (AUTO) 17.3 K/uL (1.8-7.7); NEUTROPHILS % (AUTO) 94.3 % (40.0-77.0); PLATELET COUNT (AUTO) 213 K/uL (130-400); RED BLOOD CELL COUNT(AUTO) 3.54 MIL/uL (4.00-5.50); RED CELL DISTRIBUTION WIDTH 14.3 % (11.0-15.5); WHITE BLOOD COUNT (AUTO) 18.3 K/uL (4.8-10.8)
[2023-11-18 05:49] LABS: ALBUMIN 2.5 g/dL (3.5-5.0); BILIRUBIN,TOTAL 0.4 mg/dL (0.2-1.0); CREATININE 2.2 mg/dL (0.5-1.0); MAGNESIUM 1.9 mg/dL (1.80-2.40); TOTAL PROTEIN, SERUM 6.5 g/dL (6.0-8.3)
[2023-11-18 05:51] LABS: POTASSIUM 7.2 mmol/L (3.5-5.1)
[2023-11-18 05:57] LABS: HEMOGLOBIN A1C 7.4 % (4.0-6.0)
[2023-11-18 06:05] LABS: B-TYPE NATRIURETIC PEPTIDE 997 pg/mL (0-100)
[2023-11-18] MEDS: INSULIN HUMULIN R 100 UNIT/ML 3ML SQ SCH ×2 (06:39→07:30)
[2023-11-18] MEDS: HEPARIN 5,000 UNIT VIAL SQ SCH (06:40)
[2023-11-18 06:48] LABS: CREATININE 2.2 mg/dL (0.5-1.0)
[2023-11-18 07:17] LABS: POTASSIUM 7.2 mmol/L (3.5-5.1)
[2023-11-18] MEDS: ASPIRIN 81 MG EC TAB PO SCH (08:02)
[2023-11-18] MEDS: FAMOTIDINE 20MG TAB PO SCH (08:02)
[2023-11-18] MEDS: FUROSEMIDE 20MG VIAL IV SCH (08:02)
[2023-11-18] MEDS: KAYEXALATE 15GM/60ML PO ONE (08:02)
[2023-11-18] MEDS: CEFTRIAXONE 1G VIAL IV SCH (08:02)
[2023-11-18] MEDS: INSULIN GLARGINE 100 UNITS/ML 10 ML VIAL SQ SCH (08:07)
[2023-11-18] MEDS ORDERED: CALCIUM GLUC 1GM/10ML VIAL IV ONE (09:00)
[2023-11-18] MEDS: FUROSEMIDE 20MG VIAL IV ONE (09:03)
[2023-11-18] MEDS: NA ZIRCON CYCLOSIL(LOKELMA 10GM) PO ONE (09:03)
[2023-11-18] MEDS ORDERED: INSULIN HUMULIN R 100 UNIT/ML 3ML SQ SCH (11:30)
[2023-11-18 16:43] LABS: CREATININE 1.5 mg/dL (0.5-1.0); POTASSIUM 4.8 mmol/L (3.5-5.1)
[2023-11-18 20:34] LABS: CREATININE,URINE RANDOM 69.82 mg/dL (30-135)
[2023-11-19] VITALS (54 sets, daily range): BP systolic 123–193; BP diastolic 56–81; PULSE 64–92; RESP 8–67; O2SAT 95–98
[2023-11-19 04:32] LABS: HEMATOCRIT 36.3 % (36-48); MEAN CORPUSCULAR HEMOGLOBIN 30.7 pg (27.0-33.0); MEAN CORPUSCULAR HGB CONC 32.2 g/dL (32.0-36.0); MEAN CORPUSCULAR VOLUME 95.3 fL (79-99); RED BLOOD CELL COUNT(AUTO) 3.81 MIL/uL (4.00-5.50); RED CELL DISTRIBUTION WIDTH 13.9 % (11.0-15.5); WHITE BLOOD COUNT (AUTO) 22.7 K/uL (4.8-10.8)
[2023-11-19 04:48] LABS: % IRON SATURATION 11.8 % (22-44)
[2023-11-19 05:06] LABS: CREATININE 1.4 mg/dL (0.5-1.0); POTASSIUM 4.2 mmol/L (3.5-5.1)
[2023-11-19] MEDS: ACETAMINOPHEN 325 MG TAB PO PRN (06:32)
[2023-11-19] MEDS: Vitamin B Complex/Vit C/Folic Acid PO SCH (08:18)
[2023-11-19] MEDS: IPRATROPIUM/ALBUTEROL SULFATE 3 ML SOLUTION IH PRN (11:28)
[2023-11-19] MEDS: ZOSYN 3.375GM +NS 50ML IV SCH (14:10)
[2023-11-19] MEDS ORDERED: IRON SUCROSE COMPLEX 100 MG/5 ML VIAL IVP SCH (15:00)
[2023-11-19] MEDS: IRON SUCROSE COMPLEX 300 MG+/NS 250ML IV SCH (15:36)
[2023-11-20] VITALS (20 sets, daily range): BP systolic 107–138; BP diastolic 50–79; PULSE 71–104; RESP 17–56; O2SAT 94–98
[2023-11-20 04:54] LABS: HEMATOCRIT 37.9 % (36-48); MEAN CORPUSCULAR HEMOGLOBIN 30.5 pg (27.0-33.0); MEAN CORPUSCULAR HGB CONC 32.5 g/dL (32.0-36.0); RED BLOOD CELL COUNT(AUTO) 4.03 MIL/uL (4.00-5.50); WHITE BLOOD COUNT (AUTO) 14.8 K/uL (4.8-10.8)
[2023-11-20 05:11] LABS: ALBUMIN 2.5 g/dL (3.5-5.0); BILIRUBIN,TOTAL 0.3 mg/dL (0.2-1.0); CREATININE 1.3 mg/dL (0.5-1.0); PHOSPHORUS 4.2 mg/dL (2.5-4.9); POTASSIUM 4.1 mmol/L (3.5-5.1); TOTAL PROTEIN, SERUM 6.8 g/dL (6.0-8.3)
[2023-11-20] MEDS: DIPHENHYDRAMINE HCL 25 MG CAPSULE PO PRN (05:46)
[2023-11-20] MEDS ORDERED: COMPOUND IV MISC 1 EACH IVSOLN MISC PRN (09:00)
[2023-11-20] MEDS: MEROPENEM 1 GM in 0.9%NACL 100ML 100 ML IVPB SCH (09:18)
[2023-11-20] MEDS: COMPOUND IV REFRIGERATED 1 EACH MISC ONE (09:59)
[2023-11-21] VITALS (10 sets, daily range): BP systolic 111–142; BP diastolic 64–83; PULSE 71–91; RESP 18–20; O2SAT 96–98
[2023-11-21 06:50] LABS: HEMATOCRIT 40.3 % (36-48); MEAN CORPUSCULAR HEMOGLOBIN 30.4 pg (27.0-33.0); MEAN CORPUSCULAR VOLUME 92.2 fL (79-99); RED BLOOD CELL COUNT(AUTO) 4.37 MIL/uL (4.00-5.50); RED CELL DISTRIBUTION WIDTH 14.1 % (11.0-15.5)
[2023-11-21 07:04] LABS: ALBUMIN 2.6 g/dL (3.5-5.0); BILIRUBIN,TOTAL 0.4 mg/dL (0.2-1.0); CREATININE 1.1 mg/dL (0.5-1.0); POTASSIUM 3.7 mmol/L (3.5-5.1); TOTAL PROTEIN, SERUM 7.1 g/dL (6.0-8.3)
[2023-11-22] VITALS (8 sets, daily range): BP systolic 111–129; BP diastolic 60–66; PULSE 84–94; RESP 17–18; O2SAT 97–99
[2023-11-22 04:26] LABS: HEMATOCRIT 37.1 % (36-48); MEAN CORPUSCULAR HGB CONC 33.2 g/dL (32.0-36.0); MEAN CORPUSCULAR VOLUME 90.5 fL (79-99); RED BLOOD CELL COUNT(AUTO) 4.1 MIL/uL (4.00-5.50); RED CELL DISTRIBUTION WIDTH 13.9 % (11.0-15.5); WHITE BLOOD COUNT (AUTO) 16.3 K/uL (4.8-10.8)
[2023-11-22 04:40] LABS: CREATININE 1.1 mg/dL (0.5-1.0); MAGNESIUM 1.9 mg/dL (1.80-2.40); POTASSIUM 3.6 mmol/L (3.5-5.1)
[2023-11-22] MEDS ORDERED: POTASSIUM CHLORIDE 20MEQ/100ML 100 ML IV PRN (05:30)
[2023-11-22] MEDS ORDERED: MAGNESIUM 2GM PREMIX 50ML 50 ML IV PRN (05:30)
[2023-11-22] MEDS ORDERED: POTASSIUM CHLORIDE 10% ELIXIR 20 MEQ/15 ML UDCUP PO PRN (05:30)
[2023-11-22] MEDS: KCL 20 MEQ ERTAB PO PRN (06:07)
[2023-11-22] MEDS ORDERED: AEC81 PO (14:38)
== END 2023-11-22 16:10 | disposition home or self-care (01) | DRG 871 ==
LOC: EDH 21:34 → EDHIP 21:35 → 4CH 11-18 05:51 → 2CV 11-18 10:05 → WSH 11-20 09:40 → 4CH 11-21 16:30
PROVIDERS: ADMIT Hospitalist; ATTEND Hospitalist
DX: A41.50 Gram-negative sepsis, unspecified (principal); G93.41 Metabolic encephalopathy; J18.9 Pneumonia, unspecified organism; N39.0 Urinary tract infection, site not specified; N17.9 Acute kidney failure, unspecified; Z16.24 Resistance to multiple antibiotics; Z20.822 Contact with and (suspected) exposure to COVID-19; E78.5 Hyperlipidemia, unspecified; E87.5 Hyperkalemia; D64.9 Anemia, unspecified; E11.65 Type 2 diabetes mellitus with hyperglycemia; I12.9 Hypertensive chronic kidney disease with stage 1 through stage 4 chronic kidney disease, or unspecified chronic kidney disease; T50.991A Poisoning by other drugs, medicaments and biological substances, accidental (unintentional), initial encounter; B96.29 Other Escherichia coli [E. coli] as the cause of diseases classified elsewhere; E11.22 Type 2 diabetes mellitus with diabetic chronic kidney disease; J45.909 Unspecified asthma, uncomplicated; N18.9 Chronic kidney disease, unspecified; Y92.89 Other specified places as the place of occurrence of the external cause; R21 Rash and other nonspecific skin eruption
CPT/HCPCS: 36415; 70450; 71045; 76770; 80048; 80051; 80053; 80061; 81001; 82140; 82550; 82570; 82728; 82947; 82948; 83036; 83540; 83550; 83605; 83721; 83735; 83880; 83935; 84100; 84132; 84145; 84484; 85025; 85027; 85610; 85730; 87040; 87077; 87088; 87186; 87635; 87804; 93005; 93306; 94640; 96365; 96366; 96375; 96376; 99291; G0378; J0612; J0696; J1644; J1756; J1815; J1940; J2185; J2310; J2543; J2919; J7050; J7070; Q0163; A4600

== ENCOUNTER 2024-12-18 14:27 | Emergency (ER) | payer SELFPAY ==
[~2024-12-18] VITALS: Ht 157.5 cm; Wt 63.5 kg
[~2024-12-18 14:27] MED LIST changes: +AEC81 PO; -ALBU0.63 IH; -ALBU2.5V2 IH; -ALBU90AE2 IH; -AZIT1PAC7 PO; -AZIT500T2 PO; -FIORIT PO; -GUAI5LIQ13 PO; -HYOS0.124 SL; -IBUP-2088 PO; -KETO10TA2 PO; -LEVO750T68 PO; -PRED20TA3 PO
[2024-12-18] MEDS: LACTATED RINGERS 1000ML 1,000 ML IV ONE (14:58)
[2024-12-18] MEDS: ketOROlac 15MG/ML VIAL (15MG/ML) IV ONE (14:59)
[2024-12-18] MEDS: dexaMETHasone SOD PHOSPHATE 4 MG/ML 1ML VIAL IVP ONE (14:59)
[2024-12-18] MEDS: DiphenhydrAMINE HCL 50 MG/ML VIAL IV ONE (15:00)
[2024-12-18] MEDS: PROCHLORPERAZINE 10MG/2ML INJ IV ONE (15:01)
[2024-12-18] MEDS: acetaMINOPHEN 500 MG TABLET PO ONE (15:02)
[2024-12-18] MEDS ORDERED: FIORIT PO (15:42)
--- NOTE | 2024-12-18 15:43 | ERN ---
General Chief Complaint: Headache Stated Complaint: HEADACHE Time Seen by MD: 14:29 History of Present Illness Initial Comments 64-year-old female who presents for right-sided throbbing headache. Patient reports she has had a right-sided throbbing headache for the last 12-24 hours. She took an Excedrin with minimal relief and it returns. She reports nausea. No vision changes. No neck stiffness. No fevers. She reports a history of migraines, and she reports this feels similar. She has not had a headache this bad in the last few years. Allergies: Coded Allergies: No Known Drug Allergies (Verified Allergy, Unknown, 07/01/19) Home Meds Active Scripts Aspirin (ASPIRIN 81 MG ECTAB) 81 Mg Ectab, 81 MG PO DAILY, #30 TAB.EC 0 Refills Prov:ELISSA COPELAND MD 11/22/23 Past Medical History Past Medical History: Arthritis, Hypertension Medical History Other: KIDNEY Past Surgical History: None Surgical History Other: LEFT FOOT SX Family History Family History: Negative Social History Social History: Negative, Lives alone Female( History) History: Not Applicable ROS Dictation CONSTITUTIONAL: No chills, no fever, no weakness, no diaphoresis, no malaise. HEAD/FACE: No signs of trauma. EENT: No eye pain, no blurred vision, no tearing, no double vision, no ear pain, no ear discharge, no nose pain, no nasal congestion, no throat pain, no throat swelling, no mouth pain. RESPIRATORY: No cough, no orthopnea, no SOB, no stridor, no wheezing. CARDIOVASCULAR: No chest pain, no edema, no palpitations, no syncope. GASTROINTESTINAL/ABDOMINAL: No abdominal pain, no constipation, no diarrhea, no nausea, no vomiting. GENITOURINARY: No abnormal discharge, no dysuria, no frequent urination, no hematuria. No complaints of pain in the genitals. MUSCULOSKELETAL: No back pain, no gout, no joint pain, no joint swelling, no muscle pain, no muscle stiffness, no neck pain. INTEGUMENTARY: No change in color, no change in hair/nails, no dryness, no lesion, no lumps, no rash. NEUROLOGICAL/PSYCH: Headache HEMATOLOGIC/LYMPHATIC: Not anemic, no history of blood clots, no apparent bleeding, no bruising, glands not swollen. All Systems Negative, Except as Noted. Physical Exam Physical Exam Dictation VITAL SIGNS: Reviewed. GENERAL APPEARANCE: Alert, oriented x3, no acute distress. HEAD AND FACE: Non-traumatic. EYES: PERRL, pink conjunctivas, eyelid no trauma, anterior chamber clear. EARS: Pinnas intact and no signs of trauma or erythema. Ear canals clear and no discharge. TMs no erythema. NOSE: No discharge, no bleeding. OROPHARYNX: Mouth normal, teeth no caries, tongue pink. Pharynx clear, no erythema. Tonsils no exudates, no abscesses noted. Mucous membrane moist. NECK: Supple, non-tender, no thyromegaly, no masses, no JVD, no bruits. BREAST: Deferred. CHEST: No tenderness, no crepitus, no paradoxical movement, no retractions. LUNGS: Clear, well-ventilated, symmetric, no rales, no wheezing, no rhonchi, no stridor, good breath sounds bilaterally. HEART: Regular rate, regular rhythm, no murmur, no gallops. VASCULAR: No peripheral edema. ABDOMEN: Soft, positive bowel sounds, nondistended, no guarding, nontender, no rebound, no masses no hepatomegaly, no splenomegaly, no Bunn's sign, no hernias. RECTAL: Deferred. GENITAL: Deferred. NEUROLOGICAL: Normal speech, gross motor function intact, gross sensory function intact. MUSCULOSKELETAL: Neck nontender, full range of motion, back nontender, full range of motion. EXTREMITIES: Nontender, full range of motion. SKIN: Color pink, dry, no turgor, no rash, no lacerations, no abrasions, no contusions. LYMPHATICS: Deferred. DBEI CC: Headache Historian: Patient Comorbidities: Arthritis, hypertension, kidney disease Limitations by social determinants of health: Uninsured Differential diagnosis: Migraine headache, benign headache, tension headache, meningitis, other Vital signs are stable Clinical exam is unremarkable. Cranial nerves are intact. SHANNON, EOMI. No signs of focal neurologic deficits, NIHSS of 0. Patient received a headache cocktail including IV Toradol, dexamethasone, Compazine, Benadryl. Re-evaluation: Headache is improved. Plan: We will DC with Fioricet. Very low suspicion for any life threats. Copa: Chronic illness with the exacerbation. Known diagnosis of migraines and experienced some moderate to severity flare-up in the ED requiring IV pain medication. The differential diagnosis includes subarachnoid hemorrhage, meningitis, or mass effects all of which are unlikely based on the clinical presentation. Data: No labs or imaging ordered I did reassess the patient after a migraine cocktail and the patient reports decreased symptoms. Risk: Fioricet prescription, minor monitored in the ER of response to therapy and neurologic deterioration. ED Course Orders Procedure Category Date Status Time Lactated Ringers PHA 12/18/24 Complete 1000ml (Lactated 15:00 Ketorolac PHA 12/18/24 Complete Tromethamine 15mg/Ml 15:00 Prochlorperazine PHA 12/18/24 Complete 10mg/2ml Inj 15:00 Diphenhydramine Hcl PHA 12/18/24 Complete (Benadryl Inj) 15:00 Acetaminophen 500mg PHA 12/18/24 Complete Tab (Tylenol 500mg T 15:00 Dexamethasone 4mg/Ml PHA 12/18/24 Complete 1ml Vial (Dexametha 15:00 Current Medications Medications (Trade) Dose Ordered Sig/Rama Route PRN Reason Start Time Stop Time Status Last Admin Dose Admin Acetaminophen (TYLenol 500MG TAB) 1,000 mg ONCE ONCE PO 12/18/24 15:00 12/18/24 15:01 DC 12/18/24 15:02 Dexamethasone Sodium Phosphate (dexaMETHasone 4MG/ML 1ML VIAL) 8 mg ONCE ONCE IVP 12/18/24 15:00 12/18/24 15:01 DC 12/18/24 14:59 Diphenhydramine HCl (BENAdryl INJ) 25 mg ONCE ONCE IV 12/18/24 15:00 12/18/24 15:01 DC 12/18/24 15:00 Ketorolac Tromethamine (toRADol) 15 mg ONCE ONCE IV 12/18/24 15:00 12/18/24 15:01 DC 12/18/24 14:59 Lactated Ringer's 1,000 ml @ 0 mls/hr ONCE ONCE IV 12/18/24 15:00 12/18/24 15:01 DC 12/18/24 14:58 Prochlorperazine Edisylate (Compazine 10mg/ 2ml Inj) 5 mg ONCE ONCE IV 12/18/24 15:00 12/18/24 15:01 DC 12/18/24 15:01 Vital Signs Date Time Temp Pulse Resp B/P (MAP) Pulse Ox O2 Delivery O2 Flow Rate FiO2 12/18/24 14:32 98.1 91 18 148/79 98 Room Air 0 DX & DISP Disposition: Discharge Departure Impression: Primary Impression: Migraine headache Condition: Stable Scripts Butalb/Acetaminophen/Caffeine (Fioricet) 50 Mg-325 Mg-40 Mg Tab 1 TAB PO QID PRN for headache for 10 Days, #30 TAB Prov: TATIANNA MUHAMMAD DO 12/18/24 Additional Instructions: Your symptoms are most consistent with a migraine headache. I have prescribed Fioricet, which is a medication that you can use for headaches. You can take 1-2 tabs every 6 hours as needed. Return to the emergency department as needed. Referrals: SELF,REFERRAL (PCP) TATIANNA MUHAMMAD DO Dec 18, 2024 15:43
[2024-12-18 15:46] VITALS: BP 115/72; PULSE 85; RESP 16; TEMP 98.2; O2SAT 97
== END 2024-12-18 15:54 | disposition home or self-care (01) ==
LOC: EDH 14:27
DX: G43.909 Migraine, unspecified, not intractable, without status migrainosus (principal); I10 Essential (primary) hypertension; M19.90 Unspecified osteoarthritis, unspecified site; Z59.71 Insufficient health insurance coverage; Z79.82 Long term (current) use of aspirin
CPT/HCPCS: 99284; 96374; 96375; 96361; J1100; J1885; J7120; J1200; J0780

== ENCOUNTER 2025-01-02 08:20 | Emergency (ER) | payer SELFPAY ==
[~2025-01-02] VITALS: Ht 157.5 cm; Wt 63.5 kg
[~2025-01-02 08:20] MED LIST changes: +FIORIT PO; +METH4TAB3 PO; +METO-296 PO
--- NOTE | 2025-01-02 08:49 | ERN ---
General Chief Complaint: Back Pain-No Injury Stated Complaint: BACK PAIN Time Seen by MD: 08:30 Source: patient, family History of Present Illness Initial Comments Patient is a 64-year-old female coming in to be evaluated for lower abdominal discomfort as well as back pain radiating down the right leg. Patient states that she was diagnosed with renal insufficiency by PCP. She states that she is monitoring that with the home health clinical supervisor as well. She also states that shortly before coming today she started having right lower back pain radiating down the right leg. Allergies: Coded Allergies: No Known Drug Allergies (Verified Allergy, Unknown, 07/01/19) Home Meds Active Scripts Metoclopramide HCl (Reglan) 10 Mg Tablet, 1 TAB PO TID for 3 Days, #9 TAB 0 Refills before food and bedtime Prov:HUBERT TREADWELL [employer] 12/22/24 Methylprednisolone (Medrol) 4 Mg Tab.ds.pk, 1 TAB PO AD for 6 Days, #21 TAB 0 Refills 6 on day 1 then reduce by one tablet daily until gone Prov:HUBERT TREADWELL [employer] 12/22/24 Butalb/Acetaminophen/Caffeine (Fioricet) 50 Mg-325 Mg-40 Mg Tab, 1 TAB PO QID PRN for headache for 10 Days, #30 TAB Prov:TATIANNA MUHAMMAD DO 12/18/24 Aspirin (ASPIRIN 81 MG ECTAB) 81 Mg Ectab, 81 MG PO DAILY, #30 TAB.EC 0 Refills Prov:ELISSA COPELAND MD 11/22/23 Past Medical History Past Medical History: Asthma, Hypertension, Renal Disese Medical History Other: KIDNEY Past Surgical History: Other Surgical History Other: left knee sx Family History Family History: Negative Social History Social History: Negative, Lives alone Female( History) History: Not Applicable ROS Dictation CONSTITUTIONAL: No chills, no fever, no weakness, no diaphoresis, no malaise. HEAD/FACE: No signs of trauma. EENT: No eye pain, no blurred vision, no tearing, no double vision, no ear pain, no ear discharge, no nose pain, no nasal congestion, no throat pain, no throat swelling, no mouth pain. RESPIRATORY: No cough, no orthopnea, no SOB, no stridor, no wheezing. CARDIOVASCULAR: No chest pain, no edema, no palpitations, no syncope. GASTROINTESTINAL/ABDOMINAL: No abdominal pain, no constipation, no diarrhea, no nausea, no vomiting. GENITOURINARY: No abnormal discharge, no dysuria, no frequent urination, no hematuria. No complaints of pain in the genitals. MUSCULOSKELETAL: No back pain, no gout, no joint pain, no joint swelling, no muscle pain, no muscle stiffness, no neck pain. INTEGUMENTARY: No change in color, no change in hair/nails, no dryness, no lesion, no lumps, no rash. NEUROLOGICAL/PSYCH: No anxiety, not depressed, no emotional problem, no he adache, no numbness, no pre-existing deficit, no history of seizures, no tremors, no weakness. HEMATOLOGIC/LYMPHATIC: Not anemic, no history of blood clots, no apparent bleeding, no bruising, glands not swollen. All Systems Negative, Except as Noted. Physical Exam Physical Exam Dictation VITAL SIGNS: Reviewed. GENERAL APPEARANCE: Alert, oriented x3, no acute distress, obese. HEAD AND FACE: Non-traumatic. EYES: PERRL, pink conjunctivas, eyelid no trauma, anterior chamber clear. EARS: Pinnas intact and no signs of trauma or erythema. Ear canals clear and no discharge. TMs no erythema. NOSE: No discharge, no bleeding. OROPHARYNX: Mouth normal, teeth no caries, tongue pink. Pharynx clear, no erythema. Tonsils no exudates, no abscesses noted. Mucous membrane moist. NECK: Supple, non-tender, no thyromegaly, no masses, no JVD, no bruits. BREAST: Deferred. CHEST: No tenderness, no crepitus, no paradoxical movement, no retractions. LUNGS: Clear, well-ventilated, symmetric, no rales, no wheezing, no rhonchi, no stridor, good breath sounds bilaterally. HEART: Regular rate, regular rhythm, no murmur, no gallops. VASCULAR: No peripheral edema. ABDOMEN: Soft, positive bowel sounds, nondistended, no guarding, nontender, no rebound, no masses no hepatomegaly, no splenomegaly, no Bunn's sign, no hernias. RECTAL: Deferred. GENITAL: Deferred. NEUROLOGICAL: Normal speech, gross motor function intact, gross sensory function intact. MUSCULOSKELETAL: Neck nontender, full range of motion, right piriformis muscle tenderness on palpation EXTREMITIES: Nontender, full range of motion. SKIN: Color pink, dry, no turgor, no rash, no lacerations, no abrasions, no contusions. LYMPHATICS: Deferred. Results Laboratory and Microbiology Lab and Micro Result Laboratory Tests Test 01/02/25 08:50 01/02/25 09:22 White Blood Count 7.8 K/uL (4.8-10.8) Red Blood Count 3.67 MIL/uL (4.00-5.50) L Hemoglobin 11.7 g/dL (12.0-16.0) L Hematocrit 36.3 % (36-48) Mean Corpuscular Volume 98.9 fL (79-99) Mean Corpuscular Hemoglobin 31.9 pg (27.0-33.0) Mean Corpuscular Hemoglobin Concent 32.2 g/dL (32.0-36.0) Red Cell Distribution Width 15.4 % (11.0-15.5) Platelet Count 267 K/uL (130-400) Mean Platelet Volume 9.5 fL (7.5-10.5) Immature Granulocyte % (Auto) 3.3 % (0-1) H Neutrophils (%) (Auto) 56.2 % (40.0-77.0) Lymphocytes (%) (Auto) 30.2 % (21.0-51.0) Monocytes (%) (Auto) 6.6 % (3.0-13.0) Eosinophils (%) (Auto) 3.1 % (0.0-8.0) Basophils (%) (Auto) 0.6 % (0.0-5.0) Neutrophils # (Auto) 4.4 K/uL (1.8-7.7) Lymphocytes # (Auto) 2.4 K/uL (1.0-4.8) Monocytes # (Auto) 0.5 K/uL (0.1-1.0) Eosinophils # (Auto) 0.24 K/uL (0.00-0.70) Basophils # (Auto) 0.05 K/uL (0.00-0.20) Absolute Immature Granulocyte (auto 0.26 K/uL (0-1) Nucleated Red Blood Cells 0.0 % (0.0-0.19) Sodium Level 142 mmol/L (136-145) Potassium Level 3.8 mmol/L (3.5-5.1) Chloride Level 106 mmol/L (101-111) Carbon Dioxide Level 28 mmol/L (21-32) Blood Urea Nitrogen 10 mg/dL (7-18) Creatinine 0.8 mg/dL (0.5-1.0) Glomerular Filtration Rate Calc 83 mL/min (>90) Random Glucose 117 mg/dL (70-105) H Total Calcium 9.3 mg/dL (8.5-10.1) Urine Color LIGHT-YELLOW (YELLOW) Urine Appearance CLEAR (CLEAR) Urine pH 5.5 (5.0-8.0) Urine Specific [place] 1.012 (1.001-1.031) Urine Protein NEGATIVE mg/dL (NEGATIVE) Urine Glucose (UA) NEGATIVE mg/dL (NEGATIVE) Urine Ketones NEGATIVE mg/dL (NEGATIVE) Urine Occult Blood NEGATIVE (NEGATIVE) Urine Nitrate NEGATIVE (NEGATIVE) Urine Bilirubin NEGATIVE mg/dL (NEGATIVE) Urine Urobilinogen 0.2 mg/dL (0.2-1.0) Urine Leukocyte Esterase NEGATIVE [place]/uL Urine RBC 0-1 /HPF (0-1) Urine WBC 0-1 /HPF (0-1) Urine Squamous Epithelial Cells RARE /HPF (0-2) Urine Bacteria None /HPF (None Seen) Urine Hyaline Casts 6-10 /LPF (0-1 /LPF) H Labs Reviewed?: Yes MDM MDM: Differential diagnosis: Right-sided sciatica, back spasms, Rationale: Tests considered and ordered secondary to shared decision making include: Previous outside records reviewed: Old ER visits. Risk of complication and/or morbidity or mortality of patient management: None Medications-Per medication reconciliation Need for hospitalization: Patient does not meet criteria for hospitalization. Patient is a 64-year-old female coming in to be evaluated for right piriformis muscle tenderness right gluteal. Patient states that this has been ongoing for a couple of days. Patient was concerned she might have a urinary tract infection. Laboratory workup negative for acute findings. Patient will be discharged in stable condition with a diagnosis of right-sided sciatica I did advised her appropriate follow up with PCP for long-term management. ED Course Orders Procedure Category Date Status Time Cbc With Differential LAB 01/02/25 Complete 08:31 Basic Metabolic Panel LAB 01/02/25 Complete 08:31 Urinalysis LAB 01/02/25 Complete W/Microscopic 08:31 Orphenadrine Citrate PHA 01/02/25 Complete (Norflex) 10:00 Ketorolac PHA 01/02/25 Complete Tromethamine 30mg/Ml 10:00 Current Medications Medications (Trade) Dose Ordered Sig/Rama Route PRN Reason Start Time Stop Time Status Last Admin Dose Admin Ketorolac Tromethamine (toRADol) 30 mg ONCE ONCE IM 01/02/25 10:00 01/02/25 10:01 DC 01/02/25 10:04 Orphenadrine Citrate (Norflex) 60 mg ONCE ONCE IM 01/02/25 10:00 01/02/25 10:02 DC Vital Signs Date Time Temp Pulse Resp B/P (MAP) Pulse Ox O2 Delivery O2 Flow Rate FiO2 01/02/25 08:26 97.5 92 16 160/77 97 Room Air* 0 21 01/02/25 08:21 97.5 92 16 160/77 97 Room Air 0 DX & DISP Disposition: Discharge Departure Impression: Primary Impression: Right sided sciatica Additional Impression: Muscle spasm Condition: Stable Scripts Acetaminophen (Tylenol) 500 Mg Tab 1 TAB PO Q6HPRN PRN for pain or fever for 5 Days, #30 TAB 0 Refills Prov: CALLUM RENE MD 01/02/25 Methocarbamol (Robaxin) 750 Mg Tab 1 TAB PO BID for 7 Days, #14 TAB 0 Refills Prov: CALLUM RENE MD 01/02/25 Additional Instructions: FOLLOW-UP WITH PRIMARY CARE PROVIDER IN 1 TO 2 DAYS. TAKE MEDICATIONS DIRECTED HERE IN THE EMERGENCY ROOM. OKAY TO CONTINUE HOME MEDICATIONS UNLESS OTHERWISE DISCUSSED DURING YOUR VISIT IN THE EMERGENCY ROOM TODAY. RETURN TO YOUR NEAREST EMERGENCY ROOM IF SYMPTOMS WORSEN OR IF THERE IS NO IMPROVEMENT. CALL 911 IF YOU NEED IMMEDIATE ASSISTANCE. TAKE TYLENOL [id number] NEEDED AND IF NO CONTRAINDICATIONS ARE PRESENT. INCREASE ORAL HYDRATION. A WOUND CULTURE OR URINE CULTURE WAS ORDERED HERE IN THE EMERGENCY ROOM DEPARTMENT PLEASE FOLLOW-UP WITH PRIMARY CARE PROVIDER AND ADVISE THEM TO GET REPORTS FROM OUR FACILITY. IF YOU HAD ANY NIKOLAS WRAP/SPLINTS THAT WERE APPLIED HERE, PLEASE DO NOT REMOVE THEM UNTIL YOU SEE YOUR PRIMARY CARE OR SPECIALTY. Referrals: Referrals: SHELLEY BONNER DO (PCP) Time of Disposition: 10:13 CALLUM RENE MD Jan 02, 2025 08:49
[2025-01-02 09:01] LABS: BASOPHILS # (AUTO) 0.05 K/uL (0.00-0.20); BASOPHILS % (AUTO) 0.6 % (0.0-5.0); EOSINOPHILS # (AUTO) 0.24 K/uL (0.00-0.70); EOSINOPHILS % (AUTO) 3.1 % (0.0-8.0); HEMATOCRIT 36.3 % (36-48); IMMATURE GRANULOCYTE ABSOLUTE 0.26 K/uL (0-1); LYMPHOCYTES # (AUTO) 2.4 K/uL (1.0-4.8); LYMPHOCYTES % (AUTO) 30.2 % (21.0-51.0); MEAN CORPUSCULAR HEMOGLOBIN 31.9 pg (27.0-33.0); MEAN CORPUSCULAR HGB CONC 32.2 g/dL (32.0-36.0); MEAN CORPUSCULAR VOLUME 98.9 fL (79-99); MONOCYTES # (AUTO) 0.5 K/uL (0.1-1.0); MONOCYTES % (AUTO) 6.6 % (3.0-13.0); NEUTROPHILS # (AUTO) 4.4 K/uL (1.8-7.7); NEUTROPHILS % (AUTO) 56.2 % (40.0-77.0); PLATELET COUNT (AUTO) 267 K/uL (130-400); RED BLOOD CELL COUNT(AUTO) 3.67 MIL/uL (4.00-5.50); RED CELL DISTRIBUTION WIDTH 15.4 % (11.0-15.5); WHITE BLOOD COUNT (AUTO) 7.8 K/uL (4.8-10.8)
[2025-01-02 09:11] LABS: CREATININE 0.8 mg/dL (0.5-1.0); POTASSIUM 3.8 mmol/L (3.5-5.1)
[2025-01-02 09:38] LABS: APPEARANCE,URINE CLEAR (CLEAR); BILIRUBIN,URINE NEGATIVE (NEGATIVE); COLOR,URINE LIGHT-YELLOW (YELLOW); GLUCOSE, URINE (UA) NEGATIVE (NEGATIVE); KETONES,URINE NEGATIVE (NEGATIVE); LEUKOCYTE ESTERASE ,URINE NEGATIVE Leu/uL (NEGATIVE); NITRATE,URINE NEGATIVE (NEGATIVE); OCCULT BLOOD,URINE NEGATIVE (NEGATIVE); PH,URINE 5.5 (5.0-8.0); PROTEIN,URINE NEGATIVE (NEGATIVE); UROBILINOGEN,URINE 0.2 mg/dL (0.2-1.0)
[2025-01-02 09:44] LABS: MUCUS,URINE RARE LPF (None Seen); RBC,URINE 0-1 /HPF (0-1); SQUAMOUS EPITHELIAL CELL,UR RARE /HPF (0-2); WBC,URINE 0-1 /HPF (0-1)
[2025-01-02] MEDS: ketOROlac 30MG VIAL (30MG/ML) IM ONE (10:04)
[2025-01-02] MEDS ORDERED: METH-662 PO (10:14)
[2025-01-02] MEDS ORDERED: ACET-66 PO (10:14)
[2025-01-02 10:26] VITALS: BP 147/69; PULSE 80; RESP 16; TEMP 97.5; O2SAT 97
[2025-01-02] MEDS: ORPHENADRINE 60MG/2ML IM ONE (10:30)
== END 2025-01-02 10:37 | disposition home or self-care (01) ==
LOC: EDH 08:27
DX: M54.41 Lumbago with sciatica, right side (principal); M62.838 Other muscle spasm; I10 Essential (primary) hypertension; J45.909 Unspecified asthma, uncomplicated; Z79.82 Long term (current) use of aspirin
CPT/HCPCS: 99284; 80048; 85025; 81001; 36415; 96372 ×2; J1885; J2360